=== PATIENT | female | born 1950 | race African-American/Black ===

== ENCOUNTER 2020-05-24 10:22 | Inpatient (IN) | payer MEDICARE, MEDICAID ==
[~2020-05-24] VITALS: Ht 167.6 cm; Wt 117.0 kg
[~2020-05-24 10:22] MED LIST: BENAZEPRIL; GABA-531 PO; GLIPIZIDE; IBUP-2029 PO; METH500T PO; MOME13HF2 IH; SERT50TA12 PO; SIMV-43 PO; TRAM50TA PO; TRAMADOL PO
[2020-05-24 11:10] LABS: BASOPHILS % 0.2 % (0.0-2.0); HEMOGLOBIN. 14.1 g/dL (12.0-16.0); LYMPHOCYTES % 10.9 % (20.0-50.0); MEAN CORPUSCULAR VOLUME 92.3 fL (81.0-99.0); MONOCYTES % 1.9 % (2.0-8.0); PLATELET 222 x1000/uL (130-400); RED BLOOD CELL COUNT 4.55 mill/uL (4.2-5.4); RED CELL DISTRIBUTION WIDTH 14.2 % (11.6-14.6)
[2020-05-24 11:14] LABS: CHLORIDE 105 mEq/L (98-107)
[2020-05-24 11:19] LABS: PROTHROMBIN TIME 10.9 sec (9.6-11.0)
[2020-05-24 11:33] LABS: CLARITY URINE CLEAR (CLEAR); COLOR URINE YELLOW (YELLOW); KETONES URINE NEGATIVE (NEGATIVE); LEUKOCYTE ESTERASE URINE NEGATIVE (NEGATIVE); NITRITE URINE NEGATIVE (NEGATIVE); OCCULT BLOOD URINE NEGATIVE (NEGATIVE); PH URINE 8.5 (4.5-8.0); PROTEIN URINE 1+ (NEGATIVE); SPECIFIC GRAVITY URINE 1.013 (1.005-1.030); UROBILINOGEN URINE 0.2 E.U./dL (0.2-1.0)
[2020-05-24] MEDS ORDERED: SODIUM CHLORIDE 0.9% 1,000 ML IV ONE (12:00)
[2020-05-24] MEDS ORDERED: ASPIRIN 325MG EC TABLET PO ONE (12:00)
[2020-05-24] MEDS ORDERED: AMLODIPINE 5MG TABLET PO ONE (12:00)
[2020-05-24] MEDS ORDERED: ACETAMINOPHEN 650MG/20.3ML UDC PO NR (16:30)
[2020-05-24] MEDS ORDERED: ACETAMINOPHEN 650MG/20.3ML UDC GT PRN ×2 (16:30)
[2020-05-24] MEDS ORDERED: ONDANSETRON HCL 4MG/2ML INJ IV PRN (16:30)
[2020-05-24] MEDS ORDERED: DEXTROSE 50% WATER 50ML SYRINGE IV PRN (16:30)
[2020-05-24] MEDS ORDERED: GUAIFENESIN 200MG/10ML SUGAR FREE UDC PO PRN (16:30)
[2020-05-24] MEDS ORDERED: ACETAMINOPHEN 650MG SUPP PR PRN ×2 (16:30)
[2020-05-24] MEDS: AMLODIPINE 10MG TABLET PO SCH ×2 (16:30→18:31)
[2020-05-24] MEDS ORDERED: DOCUSATE SODIUM 100MG CAPSULE PO PRN (16:30)
[2020-05-24] MEDS: CLONIDINE 0.1MG TABLET PO PRN (16:49)
[2020-05-24] MEDS: BLOOD SUGAR DIAGNOSTIC STRIP TEST SCH ×2 (18:00→21:00)
[2020-05-24] MEDS: GABAPENTIN 300MG CAPSULE PO SCH (18:36)
[2020-05-24] MEDS: INSULIN LISPRO 100 UNITS/ML SUBCUT SCH ×2 (19:29→21:00)
[2020-05-24] MEDS: CLONIDINE 0.1MG TABLET PO SCH (21:46)
[2020-05-24] MEDS: ENOXAPARIN 30MG/0.3ML SYR SUBCUT SCH (21:52)
[2020-05-24] MEDS: SODIUM CHLORIDE 0.45% 1,000 ML IV SCH (21:59)
[2020-05-24 22:20] VITALS: BP 139/87
[2020-05-25] VITALS (7 sets, daily range): BP systolic 117–151; BP diastolic 60–84
[2020-05-25] MEDS: CLONIDINE 0.1MG TABLET PO SCH ×3 (05:17→21:37)
[2020-05-25] MEDS: SODIUM CHLORIDE 0.45% 1,000 ML IV SCH (05:17)
[2020-05-25 06:26] LABS: BASOPHILS % 0.4 % (0.0-2.0); HEMOGLOBIN. 14.9 g/dL (12.0-16.0); LYMPHOCYTES % 11.4 % (20.0-50.0); MEAN CORPUSCULAR HEMOGLOBIN 30.4 pg (28.0-32.0); MEAN PLATELET VOLUME 8.3 fl (7.4-10.4); MONOCYTES % 5.7 % (2.0-8.0); NEUTROPHILS % 82.5 % (40.0-76.0); PLATELET 202 x1000/uL (130-400); RED BLOOD CELL COUNT 4.89 mill/uL (4.2-5.4); RED CELL DISTRIBUTION WIDTH 14.6 % (11.6-14.6)
[2020-05-25] MEDS: BLOOD SUGAR DIAGNOSTIC STRIP TEST SCH ×4 (06:53→21:00)
[2020-05-25 07:41] LABS: CHLORIDE 105 mEq/L (98-107)
[2020-05-25 07:48] LABS: HDL CHOLESTEROL 40 mg/dL (40-59); LDL CHOLESTEROL 190 mg/dL (5-100)
[2020-05-25] MEDS: GABAPENTIN 300MG CAPSULE PO SCH ×3 (09:00→17:56)
[2020-05-25] MEDS: ENOXAPARIN 30MG/0.3ML SYR SUBCUT SCH ×2 (09:18→21:25)
[2020-05-25] MEDS: ASPIRIN 325MG TABLET PO SCH (09:18)
[2020-05-25] MEDS: INSULIN LISPRO 100 UNITS/ML SUBCUT SCH ×4 (09:23→22:01)
[2020-05-25 10:09] LABS: *AMPHETAMINES SCREEN URINE NEGATIVE (NEGATIVE); *BARBITURATES SCREEN URINE NEGATIVE (NEGATIVE); *BENZODIAZEPINES SCREEN URINE NEGATIVE (NEGATIVE); *COCAINE SCREEN URINE NEGATIVE (NEGATIVE); METHADONE URINE SCREEN NEGATIVE (NEGATIVE); OPIATES URINE SCREEN NEGATIVE (NEGATIVE)
[2020-05-25 10:10] LABS: CANNABINOID URINE SCREEN NEGATIVE (NEGATIVE); PHENCYCLIDINE URINE SCREEN NEGATIVE (NEGATIVE)
[2020-05-26 04:45] VITALS: BP 153/75
[2020-05-26] MEDS: CLONIDINE 0.1MG TABLET PO SCH ×3 (05:59→21:42)
[2020-05-26] MEDS: BLOOD SUGAR DIAGNOSTIC STRIP TEST SCH ×4 (07:20→21:42)
[2020-05-26 08:11] VITALS: BP 142/74
[2020-05-26] MEDS: INSULIN LISPRO 100 UNITS/ML SUBCUT SCH ×4 (09:40→21:42)
[2020-05-26] MEDS: ENOXAPARIN 30MG/0.3ML SYR SUBCUT SCH ×2 (09:41→21:43)
[2020-05-26] MEDS: ASPIRIN 325MG TABLET PO SCH (09:41)
[2020-05-26] MEDS: AMLODIPINE 10MG TABLET PO SCH (09:42)
[2020-05-26] MEDS: GABAPENTIN 300MG CAPSULE PO SCH ×3 (09:42→17:58)
[2020-05-26] MEDS: CLONIDINE 0.1MG TABLET PO PRN (11:44)
[2020-05-26 12:13] VITALS: BP 164/72
[2020-05-26 13:40] LABS: BASOPHILS % 0.1 % (0.0-2.0); HEMOGLOBIN. 13.8 g/dL (12.0-16.0); LYMPHOCYTES % 11.6 % (20.0-50.0); MEAN CORPUSCULAR HEMOGLOBIN 30.7 pg (28.0-32.0); MEAN PLATELET VOLUME 8.6 fl (7.4-10.4); MONOCYTES % 5.3 % (2.0-8.0); PLATELET 227 x1000/uL (130-400); RED BLOOD CELL COUNT 4.51 mill/uL (4.2-5.4); RED CELL DISTRIBUTION WIDTH 14.6 % (11.6-14.6)
[2020-05-26 13:48] LABS: CHLORIDE 104 mEq/L (98-107)
[2020-05-26 15:21] LABS: VITAMIN B12 SERUM 467 pg/mL (211-911)
[2020-05-26 15:56] VITALS: BP 123/59
[2020-05-26 20:37] VITALS: BP 142/78
[2020-05-26] MEDS ORDERED: ATORVASTATIN CALCIUM 10MG TABLET PO SCH (21:00)
[2020-05-26] MEDS ORDERED: ATORVASTATIN CALCIUM 40MG TABLET PO SCH (21:00)
[2020-05-27] VITALS: BP 145/69
[2020-05-27 04:43] VITALS: BP 142/76
[2020-05-27] MEDS: BLOOD SUGAR DIAGNOSTIC STRIP TEST SCH ×2 (06:31→12:44)
[2020-05-27] MEDS: CLONIDINE 0.1MG TABLET PO SCH ×2 (06:49→13:01)
[2020-05-27] MEDS: INSULIN LISPRO 100 UNITS/ML SUBCUT SCH ×2 (07:50→12:59)
[2020-05-27 08:02] VITALS: BP 144/80
[2020-05-27 08:17] LABS: BASOPHILS % 0.2 % (0.0-2.0); EOSINOPHILS % 0.1 % (0.0-5.0); HEMATOCRIT. 41.9 % (36.0-48.0); HEMOGLOBIN. 13.9 g/dL (12.0-16.0); LYMPHOCYTES % 12.6 % (20.0-50.0); MEAN CORPUSCULAR HEMOGLOBIN 30.5 pg (28.0-32.0); MEAN CORPUSCULAR VOLUME 92.1 fL (81.0-99.0); MEAN PLATELET VOLUME 8.6 fl (7.4-10.4); MONOCYTES % 5.1 % (2.0-8.0); PLATELET 231 x1000/uL (130-400); RED BLOOD CELL COUNT 4.55 mill/uL (4.2-5.4)
[2020-05-27] MEDS: ENOXAPARIN 30MG/0.3ML SYR SUBCUT SCH (09:05)
[2020-05-27] MEDS: ASPIRIN 325MG TABLET PO SCH (09:06)
[2020-05-27] MEDS: GABAPENTIN 300MG CAPSULE PO SCH (09:06)
[2020-05-27] MEDS: AMLODIPINE 10MG TABLET PO SCH (09:06)
[2020-05-27 11:50] VITALS: BP 142/76
[2020-05-27] MEDS ORDERED: ASPI-986 PO (12:49)
[2020-05-27] MEDS ORDERED: LIP40 PO (12:49)
[2020-05-27] MEDS ORDERED: AMLO10TA80 PO (12:49)
[2020-05-27 16:17] VITALS: BP 131/65
[2020-05-27 17:17] VITALS: BP 131/65
== END 2020-05-27 17:55 | disposition home health service (06) | DRG 70 ==
LOC: ER 10:36 → 6WST 13:19 → EDBEDREQTM 13:23 → EDBEDREQ 13:23 → ENRESERV 20:11
PROVIDERS: ADMIT Family Medicine; ATTEND Family Medicine
DX: G93.41 Metabolic encephalopathy (principal); N17.0 Acute kidney failure with tubular necrosis; J98.11 Atelectasis; Z68.41 Body mass index [BMI] 40.0-44.9, adult; E11.40 Type 2 diabetes mellitus with diabetic neuropathy, unspecified; E11.65 Type 2 diabetes mellitus with hyperglycemia; E78.5 Hyperlipidemia, unspecified; F32.9 Major depressive disorder, single episode, unspecified; I10 Essential (primary) hypertension; I71.9 Aortic aneurysm of unspecified site, without rupture; E66.01 Morbid (severe) obesity due to excess calories; G20 Parkinson's disease; I25.2 Old myocardial infarction; Z91.040 Latex allergy status; Z79.899 Other long term (current) drug therapy; G90.8 Other disorders of autonomic nervous system
CPT/HCPCS: 36415; 70551; 71045; 80048; 80053; 80061; 80305; 81003; 82607; 82962; 83036; 84443; 84484; 85025; 93005; 93306; 93880; 96374; 97162; 97166; 99291; J1650; J1815; J7030

== ENCOUNTER 2020-10-30 11:03 | Inpatient (IN) | payer MEDICARE, MEDICAID ==
[~2020-10-30] VITALS: Ht 170.2 cm; Wt 114.4 kg
[~2020-10-30 11:03] MED LIST changes: +AMLO10TA80 PO; +ASPI-986 PO; -GABA-531 PO; +GABA-532 PO; +LIP40 PO; +SERT-422 PO; -SERT50TA12 PO
[2020-10-30 11:32] LABS: HEMATOCRIT. 45.9 % (36.0-48.0); HEMOGLOBIN. 15.2 g/dL (12.0-16.0); MEAN CORPUSCULAR VOLUME 93.8 fL (81.0-99.0); MEAN PLATELET VOLUME 7.8 fl (7.4-10.4); PLATELET 276 x1000/uL (130-400); RED CELL DISTRIBUTION WIDTH 14.1 % (11.6-14.6)
[2020-10-30 11:40] LABS: CHLORIDE 103 mEq/L (98-107)
[2020-10-30 11:41] LABS: INR 0.9; PROTHROMBIN TIME 10.1 sec (9.6-11.0)
[2020-10-30 11:44] LABS: ETHANOL BLOOD < 10 mg/dL
[2020-10-30 11:54] LABS: PLATELET ESTIMATE NORMAL
[2020-10-30 12:10] LABS: CLARITY URINE CLEAR (CLEAR); COLOR URINE YELLOW (YELLOW); KETONES URINE NEGATIVE (NEGATIVE); LEUKOCYTE ESTERASE URINE 2+ (NEGATIVE); NITRITE URINE NEGATIVE (NEGATIVE); OCCULT BLOOD URINE 1+ (NEGATIVE); PROTEIN URINE 2+ (NEGATIVE); SPECIFIC GRAVITY URINE 1.021 (1.005-1.030); UROBILINOGEN URINE 0.2 E.U./dL (0.2-1.0)
[2020-10-30 12:33] LABS: *AMPHETAMINES SCREEN URINE NEGATIVE (NEGATIVE); *BARBITURATES SCREEN URINE NEGATIVE (NEGATIVE); *BENZODIAZEPINES SCREEN URINE NEGATIVE (NEGATIVE); *COCAINE SCREEN URINE NEGATIVE (NEGATIVE); CANNABINOID URINE SCREEN NEGATIVE (NEGATIVE); METHADONE URINE SCREEN NEGATIVE (NEGATIVE); OPIATES URINE SCREEN NEGATIVE (NEGATIVE); PHENCYCLIDINE URINE SCREEN NEGATIVE (NEGATIVE)
[2020-10-30] MEDS ORDERED: CEFTRIAXONE 1 G PREMIX 50 ML IV ONE (12:45)
[2020-10-30] MEDS ORDERED: AZITHROMYCIN 500 MG in DEXT 5% WATER 250 ML IV ONE (12:45)
[2020-10-30] MEDS ORDERED: SODIUM CHLORIDE 0.9% 1000ML BAG (SEPSIS BOLUS) IV ONE (12:45)
[2020-10-30] MEDS ORDERED: ACETAMINOPHEN 325MG TABLET PO PRN (16:30)
[2020-10-30] MEDS ORDERED: ONDANSETRON HCL 4MG/2ML INJ IV PRN (16:30)
[2020-10-30] MEDS ORDERED: DIPHENHYDRAMINE 50MG/ML VIAL IV PRN (16:30)
[2020-10-30] MEDS ORDERED: HYDRALAZINE 20MG/ML VIAL IV PRN (16:30)
[2020-10-30] MEDS ORDERED: DEXTROSE 50% WATER 50ML SYRINGE IV PRN (16:30)
[2020-10-30 16:37] VITALS: BP 198/69
[2020-10-30] MEDS: SODIUM CHLORIDE 0.9% 1,000 ML IV SCH (17:25)
[2020-10-30] MEDS: ACETAMINOPHEN 325MG TABLET PO PRN (17:27)
[2020-10-30] MEDS: ENOXAPARIN 30MG/0.3ML SYR SUBCUT SCH (17:27)
[2020-10-30] MEDS: BLOOD SUGAR DIAGNOSTIC STRIP TEST SCH ×2 (17:28→20:51)
[2020-10-30] MEDS: INSULIN LISPRO 100 UNITS/ML SUBCUT SCH ×2 (17:31→20:51)
[2020-10-30] MEDS ORDERED: LEVOFLOXACIN 500MG PREMIX 100 ML IV NR (18:00)
[2020-10-30 20:00] VITALS: BP 187/71
[2020-10-30] MEDS: CLONIDINE 0.1MG TABLET PO PRN (20:44)
[2020-10-31] VITALS (8 sets, daily range): BP systolic 113–161; BP diastolic 72–113
[2020-10-31] MEDS: SODIUM CHLORIDE 0.9% 1,000 ML IV SCH ×2 (05:27→17:03)
[2020-10-31] MEDS: ENOXAPARIN 30MG/0.3ML SYR SUBCUT SCH ×2 (05:27→17:02)
[2020-10-31] MEDS: BLOOD SUGAR DIAGNOSTIC STRIP TEST SCH ×4 (05:39→21:00)
[2020-10-31] MEDS: INSULIN LISPRO 100 UNITS/ML SUBCUT SCH ×4 (06:33→21:00)
[2020-10-31 08:21] LABS: PHOSPHORUS 2.8 mg/dL (2.5-4.9)
[2020-10-31] MEDS: PANTOPRAZOLE SODIUM 40 MG/VIAL IV SCH (10:29)
[2020-10-31 10:49] LABS: HEMATOCRIT. 42.1 % (36.0-48.0); HEMOGLOBIN. 13.8 g/dL (12.0-16.0); MEAN CORPUSCULAR HEMOGLOBIN 31.2 pg (28.0-32.0); MEAN CORPUSCULAR VOLUME 94.8 fL (81.0-99.0); RED BLOOD CELL COUNT 4.44 mill/uL (4.2-5.4); RED CELL DISTRIBUTION WIDTH 14.3 % (11.6-14.6)
[2020-10-31 11:21] LABS: PLATELET ESTIMATE NORMAL
[2020-10-31 11:23] LABS: MEAN PLATELET VOLUME 9.4 fl (7.4-10.4)
[2020-10-31 11:24] LABS: PLATELET 197 x1000/uL (130-400)
[2020-10-31] MEDS: CLONIDINE 0.1MG TABLET PO PRN (17:02)
[2020-10-31] MEDS: LEVOFLOXACIN 250MG PREMIX 50 ML IV SCH (17:03)
[2020-10-31] MEDS: MUPIROCIN 2% OINT 22GM TOP SCH (21:00)
[2020-11-01] VITALS: BP 132/75
[2020-11-01] MEDS: BLOOD SUGAR DIAGNOSTIC STRIP TEST SCH ×4 (06:32→20:08)
[2020-11-01] MEDS: ENOXAPARIN 30MG/0.3ML SYR SUBCUT SCH ×2 (06:51→17:53)
[2020-11-01] MEDS: MUPIROCIN 2% OINT 22GM TOP SCH ×3 (06:51→22:07)
[2020-11-01] MEDS: INSULIN LISPRO 100 UNITS/ML SUBCUT SCH ×4 (06:53→20:22)
[2020-11-01] MEDS: SODIUM CHLORIDE 0.9% 1,000 ML IV SCH ×2 (08:30→19:49)
[2020-11-01] MEDS: CLONIDINE 0.1MG TABLET PO PRN ×2 (08:37→20:03)
[2020-11-01] MEDS: PANTOPRAZOLE SODIUM 40 MG/VIAL IV SCH (08:37)
[2020-11-01 10:07] LABS: BASOPHILS % 0.2 % (0.0-2.0); EOSINOPHILS % 0.1 % (0.0-5.0); HEMATOCRIT. 40.6 % (36.0-48.0); HEMOGLOBIN. 13.4 g/dL (12.0-16.0); LYMPHOCYTES % 15.2 % (20.0-50.0); MEAN CORPUSCULAR HEMOGLOBIN 31.2 pg (28.0-32.0); MEAN CORPUSCULAR VOLUME 94.6 fL (81.0-99.0); MEAN PLATELET VOLUME 8.1 fl (7.4-10.4); MONOCYTES % 11.6 % (2.0-8.0); NEUTROPHILS % 72.9 % (40.0-76.0); PLATELET 171 x1000/uL (130-400); RED BLOOD CELL COUNT 4.29 mill/uL (4.2-5.4); RED CELL DISTRIBUTION WIDTH 14.1 % (11.6-14.6)
[2020-11-01 12:00] VITALS: BP 144/64
[2020-11-01 16:00] VITALS: BP 154/94
[2020-11-01] MEDS: LEVOFLOXACIN 250MG PREMIX 50 ML IV SCH (17:53)
[2020-11-01 20:00] VITALS: BP 171/90
[2020-11-02] VITALS: BP 158/91
[2020-11-02] MEDS: ACETAMINOPHEN 325MG TABLET PO PRN (02:50)
[2020-11-02 04:00] VITALS: BP 124/83
[2020-11-02] MEDS: ENOXAPARIN 30MG/0.3ML SYR SUBCUT SCH (05:32)
[2020-11-02] MEDS: MUPIROCIN 2% OINT 22GM TOP SCH ×2 (05:35→14:53)
[2020-11-02] MEDS: BLOOD SUGAR DIAGNOSTIC STRIP TEST SCH ×2 (05:35→12:19)
[2020-11-02] MEDS: INSULIN LISPRO 100 UNITS/ML SUBCUT SCH ×2 (05:43→12:47)
[2020-11-02 08:00] VITALS: BP 151/91
[2020-11-02] MEDS ORDERED: FAMOTIDINE 20MG/2ML VIAL IV SCH (09:00)
[2020-11-02] MEDS ORDERED: LEVOFLOXACIN 250MG TABLET PO SCH (11:00)
[2020-11-02 12:00] VITALS: BP 153/77
[2020-11-02] MEDS: SODIUM CHLORIDE 0.9% 1,000 ML IV SCH (12:46)
[2020-11-02 16:00] VITALS: BP 158/83
[2020-11-02 16:23] VITALS: BP 158/83
== END 2020-11-02 16:47 | disposition home or self-care (01) | DRG 871 ==
LOC: ER 11:03 → 7WST 14:36 → ENRESERV 15:15 → 5WST 11-01 04:55
PROVIDERS: ADMIT Internal Medicine; ATTEND Internal Medicine
DX: A41.9 Sepsis, unspecified organism (principal); G93.41 Metabolic encephalopathy; N17.9 Acute kidney failure, unspecified; N39.0 Urinary tract infection, site not specified; L02.414 Cutaneous abscess of left upper limb; E78.00 Pure hypercholesterolemia, unspecified; Z20.822 Contact with and (suspected) exposure to COVID-19; B96.89 Other specified bacterial agents as the cause of diseases classified elsewhere; I10 Essential (primary) hypertension; E78.5 Hyperlipidemia, unspecified; E11.40 Type 2 diabetes mellitus with diabetic neuropathy, unspecified; E66.01 Morbid (severe) obesity due to excess calories; F32.9 Major depressive disorder, single episode, unspecified; Z68.39 Body mass index [BMI] 39.0-39.9, adult; Z91.040 Latex allergy status; Z79.899 Other long term (current) drug therapy
CPT/HCPCS: 36415; 71045; 80048; 80053; 80305; 80320; 81003; 82140; 82962; 83036; 83605; 83735; 84100; 84484; 85025; 87077; 87186; 93005; 99291; A6261; C1893; C9113; J0360; J0456; J0696; J1650; J1815; J1956; J3490; J7030; J7060; U0003; G0480